=== PATIENT | male | born 1965 | race Caucasian/White ===

== ENCOUNTER 2019-06-04 09:15 | Emergency (ER) | payer SELFPAY ==
[~2019-06-04] VITALS: Ht 193 cm; Wt 85.1 kg
--- NOTE | 2019-06-04 09:30 | ED General ---
General Stated Complaint: CHEST PAIN History of Present Illness Date Seen by Provider: Jun 04, 2019 Time Seen by Provider: 09:25 Initial Comments Patient is a 54 y/o male who comes to the ER today requesting evaluation of some ribcage and sternum pain. He has been having symptoms over the last two weeks. He relates he feels "like there is something clicking" near his sternum. He denies specific chest pain today. He is primarily concerned today that he perceived he was having some irregular heart beats earlier today. No shortness of breath, dyspnea on exertion, orthopnea, or LE edema. Allergies and Home Medications Allergies Coded Allergies: Penicillins (Unverified Adverse Reaction, Unknown, 06/04/19) States serious reaction as a child to PCCN, reports can take Amoxicillin Patient Home Medication List Home Medication List Reviewed: Yes Review of Systems Review of Systems Constitutional: no symptoms reported EENTM: no symptoms reported Respiratory: no symptoms reported Cardiovascular: see HPI Gastrointestinal: no symptoms reported Musculoskeletal: no symptoms reported Skin: no symptoms reported All Other Systems Reviewed Negative Unless Noted: Yes Past Stwtpux-Rricob-Ntibcu Hx Patient Social History Recent Foreign Travel: No Physical Exam Vital Signs Vital Signs - First Documented 06/04/19 09:17 Temp 35.6 Pulse 58 Resp 18 B/P (MAP) 192/109 (136) Pulse Ox 99 O2 Delivery Room Air Capillary Refill : Height, Weight, BMI Height: '" Weight: lbs. oz. kg; BMI Method: General Appearance: No Apparent Distress, WD/WN Progress/Results/Core Measures Suspected Sepsis SIRS Temperature: Pulse: Respiratory Rate: Laboratory Tests 06/04/19 09:35: White Blood Count 6.1 Blood Pressure / Mean: Laboratory Tests 06/04/19 09:35: Creatinine 0.65, Platelet Count 211 Results/Orders Lab Results Laboratory Tests Test 06/04/19 09:35 Range/Units White Blood Count 6.1 4.3-11.0 10^3/uL Red Blood Count 4.30 L 4.35-5.85 10^6/uL Hemoglobin 14.8 13.3-17.7 G/DL Hematocrit 42 40-54 % Mean Corpuscular Volume 98 80-99 FL Mean Corpuscular Hemoglobin 34 25-34 PG Mean Corpuscular Hemoglobin Concent 35 32-36 G/DL Red Cell Distribution Width 12.0 10.0-14.5 % Platelet Count 211 130-400 10^3/uL Mean Platelet Volume 9.5 7.4-10.4 FL Neutrophils (%) (Auto) 59 42-75 % Lymphocytes (%) (Auto) 27 12-44 % Monocytes (%) (Auto) 11 0-12 % Eosinophils (%) (Auto) 2 0-10 % Basophils (%) (Auto) 1 0-10 % Neutrophils # (Auto) 3.6 1.8-7.8 X 10^3 Lymphocytes # (Auto) 1.7 1.0-4.0 X 10^3 Monocytes # (Auto) 0.7 0.0-1.0 X 10^3 Eosinophils # (Auto) 0.2 0.0-0.3 10^3/uL Basophils # (Auto) 0.0 0.0-0.1 10^3/uL Sodium Level 139 135-145 MMOL/L Potassium Level 3.9 3.6-5.0 MMOL/L Chloride Level 100 98-107 MMOL/L Carbon Dioxide Level 26 21-32 MMOL/L Anion Gap 13 5-14 MMOL/L Blood Urea Nitrogen 13 7-18 MG/DL Creatinine 0.65 0.60-1.30 MG/DL Estimat Glomerular Filtration Rate > 60 BUN/Creatinine Ratio 20 Glucose Level 94 70-105 MG/DL Calcium Level 9.4 8.5-10.1 MG/DL Troponin I < 0.30 <0.30 NG/ML My Orders Orders - CHRISTINE AGUILLON DO Ed Iv/Invasive Line Start (06/04/19 09:23) Cbc With Automated Diff (06/04/19 09:23) Basic Metabolic Panel (06/04/19 09:23) Troponin I Fs (06/04/19 09:23) Chest Pa/Lat (2 View) (06/04/19 09:23) Ekg Tracing (06/04/19 09:23) Thyroid Stimulating Hormone (06/04/19 10:08) Vital Signs/I&O 06/04/19 09:17 Temp 35.6 Pulse 58 Resp 18 B/P (MAP) 192/109 (136) Pulse Ox 99 O2 Delivery Room Air Capillary Refill : Progress Note : Time: 09:27 Progress Note Patient is seen and examined. EKG completed and w/o acute changes. Will check CXR, troponin, labs. 10:30: All results are reviewed and discussed with the patient and all of his questions are answered. He is discharged home today. No acute findings. He did have some sinus arrhythmia on the school lunch monitor but no additional arrhythmias during the ED course. He was not having chest pain. Troponin is not elevated. EKG is normal. Bedside ultrasound was completed during the ED course at the patient's request and evaluation for gallbladder revealed a normal anterior wall. No sludge or stones are seen. No pericholecystic fluid and no tenderness palpation over the right upper quadrant. Patient was recommended follow-up with cardiology should he continue to have palpitations for Holter monitor. Otherwise, follow-up with primary care doctor. He did have mild high blood pressures today with systolics in the 170s to 190s. These were improving over the ER course. Again, he was recommended to follow-up with primary care and have his blood pressure rechecked. ECG Initial ECG Impression Date: Jun 04, 2019 Initial ECG Impression Time: 09:28 Initial ECG Rate: 54 Initial ECG Rhythm: S.Gregg Initial ECG Intervals: Normal Initial ECG Impression: Normal Departure Impression Primary Impression: Palpitations Disposition: 01 HOME, SELF-CARE Condition: Improved Departure-Patient Inst. Referrals: SELF,TAWANA GAGNON (PCP/Family) Primary Care Physician CHRISTINE AGUILLON DO Jun 04, 2019 09:30 POS
[2019-06-04] MEDS ORDERED: Cyclobenzaprine (09:36)
[2019-06-04 09:49] LABS: BASOPHILS % (AUTO) 1 % (0-10); EOSINOPHILS % (AUTO) 2 % (0-10); HEMATOCRIT 42 % (40-54); HEMOGLOBIN 14.8 G/DL (13.3-17.7); LYMPHOCYTES % (AUTO) 27 % (12-44); MEAN CORPUSCULAR HEMOGLOBIN 34 PG (25-34); MEAN CORPUSCULAR HGB CONC 35 G/DL (32-36); MEAN CORPUSCULAR VOLUME 98 FL (80-99); MEAN PLATELET VOLUME 9.5 FL (7.4-10.4); MONOCYTES % (AUTO) 11 % (0-12); NEUTROPHILS % (AUTO) 59 % (42-75); PLATELET COUNT 211 10^3/uL (130-400); WHITE BLOOD COUNT 6.1 10^3/uL (4.3-11.0)
--- NOTE | 2019-06-04 09:49 | Diagnostic Imaging Report ---
PA and lateral chest at 9:15. Indication: Chest pain There are no prior studies available for comparison. The heart size is at the upper limits of normal. The lungs are clear. There is no evidence for failure, pneumonia or for pleural effusion. The mediastinum is not widened. The osseous structures are intact. Impression: There is no evidence for active disease. Dictated by: Dictated on workstation # [id number]
[2019-06-04 09:50] LABS: EOSINOPHILS # (AUTO) 0.2 10^3/uL (0.0-0.3); LYMPHOCYTES # (AUTO) 1.7 X 10^3 (1.0-4.0); MONOCYTES # (AUTO) 0.7 X 10^3 (0.0-1.0); NEUTROPHILS # (AUTO) 3.6 X 10^3 (1.8-7.8)
[2019-06-04 10:06] LABS: CHLORIDE 100 MMOL/L (98-107); POTASSIUM 3.9 MMOL/L (3.6-5.0); SODIUM 139 MMOL/L (135-145)
[2019-06-04 10:07] LABS: BUN/CREATININE RATIO 20; CALCIUM 9.4 MG/DL (8.5-10.1); CARBON DIOXIDE 26 MMOL/L (21-32); CREATININE SERUM 0.65 MG/DL (0.60-1.30); GFR ESTIMATED > 60; GLUCOSE 94 MG/DL (70-105)
[2019-06-04 10:49] VITALS: BP 160/101
== END 2019-06-04 10:49 | disposition home or self-care (01) ==
LOC: ER FS 09:17
DX: R00.2 Palpitations (principal); Z88.0 Allergy status to penicillin
CPT/HCPCS: 36415; 71046; 80048; 84443; 84484; 85025; 93005

== ENCOUNTER → 2019-07-13 | Outpatient (CLI) | payer OTHER ==
[~2019-07-13] MED LIST: Cyclobenzaprine
== END ==
LOC: CARD 13:06
PROVIDERS: ATTEND Internal Medicine Cardiovascular Disease
DX: R07.9 Chest pain, unspecified (principal); R00.1 Bradycardia, unspecified; R00.2 Palpitations; Z72.0 Tobacco use
CPT/HCPCS: 93306

== ENCOUNTER 2019-07-15 12:46 | Outpatient (RCR) | payer OTHER ==
[~2019-07-15 12:46] MED LIST changes: -CATHETER FLUSH 10 ML SYR IV PRN
== END 2019-10-13 | disposition home or self-care (01) ==
LOC: CARD 12:46
PROVIDERS: ATTEND Internal Medicine Cardiovascular Disease
DX: R07.9 Chest pain, unspecified (principal); R00.1 Bradycardia, unspecified; R00.2 Palpitations; Z72.0 Tobacco use
CPT/HCPCS: 93225; 93226

== ENCOUNTER → 2019-07-15 | Outpatient (CLI) | payer OTHER ==
[~2019-07-15] VITALS: Ht 193 cm; Wt 86.0 kg
[~2019-07-15] MED LIST changes: +CATHETER FLUSH 10 ML SYR IV PRN
[2019-07-15 14:44] VITALS: BP 224/106
--- NOTE | 2019-07-15 20:53 | STRESS TEST ---
DATE OF SERVICE: 07/15/2019 EXERCISE MYOVIEW STRESS TEST REPORT REFERRING PHYSICIAN: Dr. Uriah Marsh. Baseline heart rate is 62, baseline blood pressure 155/95. Baseline EKG is sinus rhythm with occasional PVCs. In summary, the patient was injected with 10.13 mCi of technetium-99 Myoview and the resting images were obtained. Then, the patient started exercising with a baseline heart rate, blood pressure and EKG mentioned above. The patient was able to exercise for 9 minutes 45 seconds on standard Jose protocol. With peak exercise level, EKG was showing [address] depression in II, III, aVF nondiagnostic changes. Blood pressure 228/99. The patient was injected with 29.0 mCi of technetium-99 Myoview. During recovery, heart rate and blood pressure returned to baseline. EKG returned to baseline. The resting and stress images were reviewed and compared in the short axis, horizontal long axis, and vertical long axis views. Review of the images showed good radiotracer uptake with no significant ischemia or infarction. SSS is 0. TID value 0.99. On the gated images, the left ventricle appeared to be normal size with normal contractility. Calculated ejection fraction 53%. CONCLUSION: 1. Good exercise tolerance, a total of 9 minutes 45 seconds on standard Jose protocol, total of 11.3 METS achieving 93% of maximum expected heart rate. 2. Severe hypertensive response to exercise with peak blood pressure 249/100 returned to baseline during recovery. 3. Minimal nondiagnostic EKG changes with exercise returned to baseline during recovery. 4. No ischemia or infarction on SPECT images. 5. Normal left ventricular size with normal contractility. Calculated ejection fraction 53%. Job ID: [id number] DocumentID: [id number] Dictated Date: 07/15/2019 16:38:48 [employer] Deck Hand Date: 07/15/2019 20:52:51 Dictated By: LEONEL PACK MD
== END ==
LOC: CARD 12:21
PROVIDERS: ATTEND Internal Medicine Cardiovascular Disease
DX: I10 Essential (primary) hypertension (principal); R07.9 Chest pain, unspecified; R00.1 Bradycardia, unspecified; R00.2 Palpitations; Z72.0 Tobacco use
CPT/HCPCS: 78452; 93017

== ENCOUNTER → 2019-08-13 | Outpatient (CLI) | payer OTHER ==
[~2019-08-13] MED LIST changes: +CATHETER FLUSH 10 ML SYR IV PRN; +HOLD METFORMIN - RECEIVED CONTRAST 20 ML VIAL IV SCH; +IOHEXOL 350 MG/ML 150 ML (OMNIPAQUE 350) VIAL IV ONE; +NS 100 ML (IVPB) BAG IV ONE
[2019-08-13 12:53] LABS: BUN/CREATININE RATIO 14; CREATININE SERUM 0.69 MG/DL (0.60-1.30); GFR ESTIMATED > 60
--- NOTE | 2019-08-13 13:59 | Diagnostic Imaging Report ---
PROCEDURE: CT angiography of the chest with contrast. TECHNIQUE: Multiple contiguous axial images were obtained through the chest after uneventful bolus administration of intravenous contrast. 3D reconstructed CTA MIP acquisitions were also performed. Auto Exposure Controls were utilized during the CT exam to meet ALARA standards for radiation dose reduction. DATE: August 13, 2019. COMPARISON: Chest radiographs June 04, 2019. INDICATION: 54-year-old male, hypertension. Evaluation for thoracic aortic aneurysm. FINDINGS: There is no identified pulmonary nodule. There is no lung mass. There is no focal airspace consolidation. There is no pneumothorax. There is no pleural effusion. The central airways are patent. There is no identified pulmonary embolus. The main pulmonary artery is normal in caliber. The heart is not enlarged. There is no identified pericardial effusion. The thoracic aorta is normal in caliber. There is no evidence of aortic dissection. There is no evidence of acute aortic injury. The celiac axis, superior mesenteric artery, bilateral renal arteries are widely patent. There are 2 left-sided renal arteries. There is no identified abnormally enlarged mediastinal, hilar, or axillary lymph node which meets CT size criteria for adenopathy. There is a 2 to 3 mm low-attenuation right renal lesion too small to characterize on axial image 128. Additional evaluation of the imaged portions of the upper abdomen is unremarkable. There are multilevel degenerative changes of the spine. There is no identified acute bony abnormality. IMPRESSION: CT CHEST. 1. No evidence of thoracic aortic aneurysm. 2. No acute cardiopulmonary abnormality. Dictated by: Dictated on workstation # [id number]
== END ==
LOC: RAD FS 12:09
PROVIDERS: ATTEND Internal Medicine Cardiovascular Disease
DX: I49.3 Ventricular premature depolarization (principal); I10 Essential (primary) hypertension
CPT/HCPCS: 36415; 71275; 82565; 84520

== ENCOUNTER 2023-03-15 10:54 | Outpatient (CLI) | payer SELFPAY ==
[~2023-03-15 10:54] MED LIST changes: -CATHETER FLUSH 10 ML SYR IV PRN; -HOLD METFORMIN - RECEIVED CONTRAST 20 ML VIAL IV SCH; -IOHEXOL 350 MG/ML 150 ML (OMNIPAQUE 350) VIAL IV ONE; -NS 100 ML (IVPB) BAG IV ONE
== END 2023-03-15 11:24 ==
LOC: SLEEP 10:54
PROVIDERS: ATTEND Physician Assistant
DX: I10 Essential (primary) hypertension (principal)
CPT/HCPCS: G0399